=== PATIENT | female | born 1990 | race Caucasian/White ===

== ENCOUNTER 2018-11-29 11:36 | Emergency (ER) | payer OTHER ==
[2018-11-29 11:52] VITALS: TEMP 98.2; BMI 27.6
[2018-11-29] MEDS ORDERED: ACETAMINOPHEN 1000 MG/100 ML VIAL (NON FORMULARY) IVPB ONE (12:57)
[2018-11-29] MEDS ORDERED: SODIUM CHLORIDE 1,000 ML IV STA (12:57)
[2018-11-29] MEDS ORDERED: METOCLOPRAMIDE HCL INJECTION 10 MG/2 ML VIAL IVPB ONE (12:57)
[2018-11-29] MEDS ORDERED: ACETAMINOPHEN INJECTION 100 ML IVPB ONE (13:17)
[2018-11-29] MEDS ORDERED: METOCLOPRAMIDE HCL INJECTION 10 MG/2 ML VIAL ONE (13:18)
[2018-11-29 13:27] LABS: BASO % 0.6 % (0-2.0); EOS % 1.3 % (0-4.5); HEMATOCRIT 35.1 % (32.4-45.2); HEMOGLOBIN 11.8 GM/dL (10.7-15.3); LYMPH % 32.9 % (8-40); MCH 29.7 pg (25.7-33.7); MCHC 33.7 g/dl (32.0-36.0); MEAN PLT VOLUME 8.5 fl (7.5-11.1); MONO % 8.4 % (3.8-10.2); NEUT % 56.8 % (42.8-82.8); PLATELET COUNT 295 K/MM3 (134-434); RBC 3.99 M/mm3 (3.60-5.2); RDW 12.6 % (11.6-15.6); WHITE BLOOD COUNT 7.6 K/mm3 (4.0-10.0)
[2018-11-29 13:40] LABS: BLOOD UREA NITROGEN 9.4 mg/dL (7-18); CALCIUM 8.7 mg/dL (8.5-10.1); CREATININE 0.6 mg/dL (0.55-1.3)
--- NOTE | 2018-11-29 14:39 | EKG ---
Test Reason : Blood Pressure : / mmHG Vent. Rate : 077 BPM Atrial Rate : 077 BPM P-R Int : 130 ms QRS Dur : 080 ms QT Int : 354 ms P-R-T Axes : 026 056 034 degrees QTc Int : 400 ms NORMAL SINUS RHYTHM NORMAL ECG NO PREVIOUS ECGS AVAILABLE Confirmed by CYNTHIA JARRETT, GAURAV ([id number]) on 11/29/2018 2:38:48 PM Referred By: Confirmed By:GAURAV MARIE MD
--- NOTE | 2018-11-29 14:55 | PDOC ---
History of Present Illness - General Chief Complaint: Chest Pain Stated Complaint: MIGRAINES/ CHEST PAIN Time Seen by Provider: 11/29/18 12:36 History Source: Patient Exam Limitations: No Limitations Past History - Past Medical History Allergies/Adverse Reactions: Allergies Allergy/AdvReac Type Severity Reaction Status Date / Time No Known Allergies Allergy Verified 11/02/14 18:12 Home Medications: Ambulatory Orders NK [No Known Home Medication] 11/29/18 COPD: No - Suicide/Smoking/Psychosocial Hx Smoking History: Never smoked Hx Alcohol Use: No Drug/Substance Use Hx: No Substance Use Type: None *Physical Exam - Vital Signs Last Vital Signs Temp Pulse Resp BP Pulse Ox 98.2 F 90 18 100/59 L 98 11/29/18 11:49 11/29/18 11:49 11/29/18 11:49 11/29/18 11:49 11/29/18 11:49 - Physical Exam General Appearance: No: Apparent Distress HEENT: positive: EOMI, SARAH Respiratory/Chest: positive: Lungs Clear, Normal Breath Sounds. negative: Chest Tender, Respiratory Distress Cardiovascular: positive: Regular Rhythm, Regular Rate, S1, S2. negative: Murmur Gastrointestinal/Abdominal: positive: Normal Bowel Sounds, Soft. negative: Tender, Distended, Guarding, Rebound Musculoskeletal: negative: CVA Tenderness Extremity: negative: Pedal Edema, Calf Tenderness Neurologic: positive: bias binding cutter II-XII NML intact, Fully Oriented, Alert, Normal Mood/ Affect, Motor Strength 5/5. negative: EOM Palsy, Facial Droop, Confused, Disoriented ED Treatment Course - LABORATORY CBC & Chemistry Diagram: 11/29/18 12:54 11/29/18 12:54 - ADDITIONAL ORDERS Additional order review: Laboratory Results 11/29/18 11/29/18 12:54 12:54 D-Dimer 337 Sodium 139 Potassium 5.0 Chloride 109 H Carbon Dioxide 29 Anion Gap 1 L BUN 9.4 Creatinine 0.6 Est GFR (CKD-EPI)AfAm 145.80 Est GFR (CKD-EPI)NonAf 125.80 Random Glucose 78 Calcium 8.7 11/29/18 12:54 RBC 3.99 MCV 88.0 MCHC 33.7 RDW 12.6 MPV 8.5 Neutrophils % 56.8 Lymphocytes % 32.9 Monocytes % 8.4 Eosinophils % 1.3 Basophils % 0.6 - RADIOLOGY Radiology Studies Ordered: Category Date Time Status CHEST PA & LAT [RAD] Stat Radiology 11/29/18 12:55 Completed - Medications Given in the ED: ED Medications Discontinued Medications Generic Name Dose Route Start Last Admin Trade Name Ferdinand PRN Reason Stop Dose Admin Acetaminophen 1,000 mg 11/29/18 12:57 11/29/18 13:21 Ofirmev Injection - IVPB 11/29/18 12:58 1,000 mg ONCE ONE Administration Sodium Chloride 1,000 mls @ 1,000 mls/hr 11/29/18 12:57 11/29/18 13:15 Normal Saline - IV 11/29/18 13:56 1,000 mls/hr ASDIR STA Administration Metoclopramide HCl 10 mg 11/29/18 12:57 11/29/18 13:39 Reglan Injection - IVPB 11/29/18 12:58 10 mg ONCE ONE Administration Medical Decision Making - Medical Decision Making 28 y/o F with no sig pmh presents with having migraines (not formally diagnosed ) since July, getting worse this month. HAs are mostly R side of head and feel stabbing like in nature. MULLER is worse with light and relieved with Excedrin. Current MULLER is 5/10. States she spoke to PCP regarding headache a while ago, but nothing was done. Also c/o R sided CP x 2 days, pressure-like, constant in nature, not worsened or relieved by anything. Denies fever, URI sxs, cough, sob , abd pain, n/v/d, calf pain. Denies smoking or drug use. Denies recent travel. Is on OCPs. Denies FH of CAD or [place] MULLER - likely a migraine Was given IVF, Tylenol and Reglan and feeling better R sided CP EKG: NSR at 77 bpm, T wave flattening lead III, TWI lead V3 Unable to PERC out given OCP use D dimer negative Rest of labs unremarkable CXR negative Could be MSK pain Patient feeling better on reassessment Stable for dc 11/29/18 14:50 *DC/Admit/Observation/Transfer Diagnosis at time of Disposition: Headache Qualifiers: Headache type: unspecified Headache chronicity pattern: chronic headache Intractability: not intractable Qualified Code(s): R51 - Headache Chest pain Qualifiers: Chest pain type: unspecified Qualified Code(s): R07.9 - Chest pain, unspecified - Discharge Dispostion Disposition: HOME Condition at time of disposition: Stable Decision to Admit order: No - Referrals Referrals: Viral Isaac MD [Staff Physician] - 2 Days - Patient Instructions Printed Discharge Instructions: DI for Chest Pain, DI for Migraine Additional Instructions: Thank you for choosing [facility]. It was a pleasure taking care of you. Your labs and chest xray were unremarkable Please follow-up with your primary care doctor in 2-3 days You were also referred to neurologist for further evaluation of your headaches Return to the Emergency Department if your symptoms worsen or persist or have other concerning symptoms. - Post Discharge Activity
[2018-11-29 15:37] VITALS: BP 98/60; PULSE 68
== END 2018-11-29 15:37 | disposition home or self-care (01) ==
LOC: JER 11:36
PROC: 3E033NZ Introduction of Analgesics, Hypnotics, Sedatives into Peripheral Vein, Percutaneous Approach (ICD-10-PCS; principal; 2018-11-29)
PROC: 3E033GC Introduction of Other Therapeutic Substance into Peripheral Vein, Percutaneous Approach (ICD-10-PCS; 2018-11-29)
PROC: 3E0337Z Introduction of Electrolytic and Water Balance Substance into Peripheral Vein, Percutaneous Approach (ICD-10-PCS; 2018-11-29)
DX: R51 Headache (principal); R07.9 Chest pain, unspecified
CPT/HCPCS: 36415; 71046-TC-FY; 80048; 84703; 85025; 85379; 93005; 93010; 99283-25; J0131; J7030